=== PATIENT | female | born 1975 | race African-American/Black ===

== ENCOUNTER → 2018-02-12 | Outpatient (CLI) | payer OTHER | END | disposition home or self-care (01) | LOC: MAMMO 09:25 | DX: Z12.31 Encounter for screening mammogram for malignant neoplasm of breast (principal) | CPT/HCPCS: 77063; 77067 ==

== ENCOUNTER 2018-03-06 11:38 | Emergency (ER) | payer OTHER | END 2018-03-06 13:16 | disposition home or self-care (01) | LOC: ER 11:38 | DX: M75.91 Shoulder lesion, unspecified, right shoulder (principal); J45.909 Unspecified asthma, uncomplicated; Z91.018 Allergy to other foods | CPT/HCPCS: 73030; 99284 ==

== ENCOUNTER → 2021-01-11 | Outpatient (CLI) | payer BC, OTHER ==
[2018-03-06 13:16] VITALS: BP 160/93
[~2021-01-11] MED LIST: HYDR-3164 PO; PRED-220 PO
--- NOTE | 2021-01-11 20:34 | RAD ---
DATE: 01/11/2021 EXAM: MAMMO NATALY SCREENING BILATERAL HISTORY: Screening COMPARISON: 02/12/2018 This study was interpreted with the benefit of Computerized Aided Detection (CAD). Breast Density: SCATTERED The breast parenchyma shows scattered fibroglandular densities. Breast parenchyma level B. FINDINGS: There are multiple small circumscribed bilateral benign-appearing masses. No suspicious mass, architectural distortion, or suspicious calcifications in either breast. IMPRESSION: No evidence of malignancy. BI-RADS CATEGORY: 2 BENIGN FINDING(S) RECOMMENDED FOLLOW-UP: 12M 12 MONTH FOLLOW-UP PQRS compliance statement: Patient information was entered into a reminder system with a target due date for the next mammogram. Mammography is a sensitive method for finding small breast cancers, but it does not detect them all and is not a substitute for careful clinical examination. A negative mammogram does not negate a clinically suspicious finding and should not result in delay in biopsying a clinically suspicious abnormality. "Our facility is accredited by the [employer] Mammography Program."
== END ==
LOC: MAMMO 14:43
PROVIDERS: ATTEND Family Medicine
DX: Z12.31 Encounter for screening mammogram for malignant neoplasm of breast (principal)
CPT/HCPCS: 77063; 77067

== ENCOUNTER → 2021-07-10 | Outpatient (CLI) | payer BC ==
[2018-03-06 13:16] VITALS: BP 160/93
--- NOTE | 2021-07-10 12:51 | KCIC ---
EXAM: Lumbar spine 5 views. HISTORY: Low back pain. Left lower extremity radiculopathy. COMPARISON: None. FINDINGS: There is minimal grade 1 anterolisthesis at L3-4. No fractures are identified. Degenerative disc disease is mild from L4 through S1. 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 Cholecystectomy clips are noted. IMPRESSION: 1. Minimal grade 1 anterolisthesis at L3-4. 2. Mild degenerative disc disease from L4 through S1. Electronically signed by: Dell Jacobson MD (07/10/2021 12:48 PM) [id number]
== END ==
LOC: KCIC 11:01
PROVIDERS: ATTEND Family Medicine
DX: M51.17 Intervertebral disc disorders with radiculopathy, lumbosacral region (principal); M43.16 Spondylolisthesis, lumbar region; Z90.49 Acquired absence of other specified parts of digestive tract
CPT/HCPCS: 72110

== ENCOUNTER → 2021-12-13 | Outpatient (CLI) | payer BC ==
[2018-03-06 13:16] VITALS: BP 160/93
--- NOTE | 2021-12-13 10:04 | KCIC ---
EXAM: Sinuses, 3 views. HISTORY: Fatigue. Covid 19. Loss of taste. COMPARISON: None. FINDINGS: 3 views of the paranasal sinuses are obtained. There is opacification of the right maxillar y sinus. The frontal sinuses are under pneumatized, a normal variant. There is no nasal septal deviat ion. IMPRESSION: Right maxillary sinus. The right maxillary sinus is opacified due to fluid or mucosal thi ckening. Electronically signed by: Kirsten Velasquez MD (12/13/2021 10:02 AM) [id number]
== END ==
LOC: KCIC 09:25
PROVIDERS: ATTEND Family Medicine
DX: R53.83 Other fatigue (principal)
CPT/HCPCS: 70220

== ENCOUNTER → 2022-01-22 | Outpatient (CLI) | payer BC ==
[2018-03-06 13:16] VITALS: BP 160/93
--- NOTE | 2022-01-22 16:42 | RAD ---
INDICATION : Routine Screening. COMPARISON: Priors including January 2018 TECHNIQUE: Standard mammogram screening views of the bilateral breasts were obtained with 3D tomosynt hesis. CAD was utilized. FINDINGS: The breasts are scattered density. No definite suspicious mass. IMPRESSION: BI-RADS Category 1: Negative. Recommend repeat screening examination in one year. The patient was placed into the recall system with a suggested recall date for follow up imaging. Mammography is the most sensitive method for finding small breast cancers, but it does not detect the m all and is not a substitute for careful clinical examination. A negative mammogram does not negate a clinically suspicious finding and should not result in delay in biopsying a clinically suspicious abnormality. Electronically signed by: Ulysses Soler MD (01/22/2022 4:40 PM) [id number]
== END ==
LOC: MAMMO 15:09
PROVIDERS: ATTEND Family Medicine
DX: Z12.31 Encounter for screening mammogram for malignant neoplasm of breast (principal)
CPT/HCPCS: 77063; 77067